=== PATIENT | male | born 1955 | race Caucasian/White ===

== ENCOUNTER → 2020-03-20 | Outpatient (CLI) | payer OTHER ==
--- NOTE | 2020-03-20 10:59 | XR ---
EXAMINATION TYPE: XR KUB DATE OF EXAM: 03/20/2020 9:53 AM CLINICAL HISTORY: Kidney calculus. Hematuria with back pain. TECHNIQUE: Supine images of the abdomen and pelvis were obtained COMPARISON: CT abdomen pelvis 10/25/2015. FINDINGS: 3 calcifications overlying the left renal shadow measure between 4 and 7 mm. There is overl kely bowel obscuring the right renal shadow, with at least one 4 mm calcification over the right lowe r pole. The bowel gas pattern is nonspecific. Degenerative changes of the lumbosacral spine. IMPRESSION: Calcifications overlying the bilateral kidneys ranging from 4 to 7 mm. The right renal shadow is part ially obscured due to overlying bowel.
== END | disposition home or self-care (01) ==
LOC: RADXRYALE 09:41
PROVIDERS: ATTEND Internal Medicine
DX: N28.89 Other specified disorders of kidney and ureter (principal)
CPT/HCPCS: 74018

== ENCOUNTER → 2020-04-11 | Outpatient (CLI) | payer OTHER ==
--- NOTE | 2020-04-11 14:33 | CT ---
EXAMINATION TYPE: CT urogram wo/w con DATE OF EXAM: 04/11/2020 COMPARISON: CT abdomen pelvis 10/25/2015 HISTORY: Gross hematuria, History of kidney stones CT DLP: 4013 mGycm, Automated Exposure Control for Dose Reduction was Utilized. CONTRAST: CT scan of the abdomen and pelvis is performed without oral contrast and without and with IV Contrast with CT urogram protocol, patient injected with 100 ml mL of Isovue 300. FINDINGS: LUNG BASES: Mild bibasilar atelectasis. Calcific coronary artery disease. No pericardial or pleural e ffusion. LIVER: Redemonstrated hepatic cysts and too small to characterize hypodense lesions. All BILIARY SYSTEM: Normal. PANCREAS: Normal. SPLEEN: Normal. ADRENALS: Normal. KIDNEYS: Right kidney demonstrates 1 nonobstructing renal calculus measuring 5 mm in the interpolar k idney. Left kidney demonstrates 3 nonobstructing renal calculi measuring 3 mm in the lower pole, 3 mm in the interpolar kidney, and 6 mm in the upper pole. There is homogenous and synchronous renal enha ncement and urinary contrast excretion. UROTHELIAL: No hydronephrosis or hydroureter. There is no abnormal urothelial enhancement, thickening , or stricture. There is poor contrast opacification of the urinary bladder, with contrast and urine mixing. No evidence of pericystic inflammatory change. BOWEL: No obstruction or thickening. PERITONEUM: No pneumoperitoneum. No free fluid. LYMPH NODES: No lymphadenopathy. PELVIS: Prostate is normal in size. VASCULATURE: No abdominal aortic aneurysm. MUSCULOSKELETAL: Osteoporosis. Redemonstrated compression deformity of L2 is unchanged versus 10/25/[address] comparison. Degenerative changes of the spine. IMPRESSION: 1. Bilateral nonobstructing renal calculi, measuring up to 5 mm on the right and 6 mm on the left. 2. No urothelial abnormality of the collecting system or ureters. 3. There is insufficient urinary bladder contrast opacification, and mixing of contrast with urine. U rothelial thickening or mass of the urinary bladder cannot be assessed.
== END | disposition home or self-care (01) ==
LOC: RADCTMAIN 08:03
PROVIDERS: ATTEND Urology
DX: N20.0 Calculus of kidney (principal)
CPT/HCPCS: 74178; 74400; Q9967